=== PATIENT | female | born 1945 | race Caucasian/White ===

== ENCOUNTER 2019-01-07 09:35 | Emergency (ER) | payer MEDICARE, OTHER ==
--- NOTE | 2019-01-07 10:50 | RAD ---
RIGHT FOREARM TWO VIEWS: HISTORY: Fall. Pain. COMPARISON: None. FINDINGS: Chronic enthesopathic changes of the common flexor tendon, at the medial humeral epicondyle. The rad ius and ulna appear to be intact. No displaced fracture. IMPRESSION: Intact forearm. POS: [facility]
--- NOTE | 2019-01-07 10:53 | RAD ---
RIGHT HAND THREE VIEWS: HISTORY: Fall with hand injury and pain. COMPARISON: None. FINDINGS: Three views of the right hand show no evidence of acute fracture or dislocation. There is joint spac e narrowing and osteophyte formation of the interphalangeal joints of the fingers, as well as the fir st CMC joint, consistent with osteoarthritis. There are erosive osteoarthritic changes involving the DIP joint of the small finger. IMPRESSION: Degenerative changes of the right hand without acute osseous abnormality. POS: [facility]
== END 2019-01-07 10:50 | disposition home or self-care (01) ==
LOC: MADERS 09:35
DX: S60.222A Contusion of left hand, initial encounter (principal); S60.221A Contusion of right hand, initial encounter; I10 Essential (primary) hypertension; F17.210 Nicotine dependence, cigarettes, uncomplicated; W19.XXXA Unspecified fall, initial encounter

== ENCOUNTER 2023-10-01 11:44 | Emergency (ER) | payer MEDICARE, BC ==
[2023-10-01 12:44] LABS: #Basophils 0.1 thou/uL (0.0-0.2); #Lymphocytes 2.4 thou/uL (1.20-3.40); #Monocytes 0.5 thou/uL (0.11-0.59); #Neutrophils 3.4 thou/uL (1.40-6.50); %Basophils 1.1 % (0.0-1.0); %Eosinophils 0.4 % (0.0-10.0); %Monocytes 8.1 % (0.0-10.0); %Neutrophils 53.4 % (42.0-75.0); Hematocrit 45.2 % (36.0-47.0); Hemoglobin 14.5 g/dL (12.0-16.0); Mean Corpuscular HGB CONC 32.1 g/dL (32.0-36.0); Mean Corpuscular Hemoglobin 31.5 pg (27.0-31.0); Mean Platelet Volume 8.8 fL (7.4-10.4); Platelet Count 233 10x3/uL (130-400); RBC Distribution Width 12.2 % (11.5-14.5); Red Blood Cell (RBC) Count 4.61 mill/uL (4.20-5.40); White Blood Cell (WBC) Count 6.4 10x3/uL (4.8-10.8)
[2023-10-01 13:03] LABS: ALT (SGPT) 16 U/L (8-55); AST (SGOT) 10 U/L (5-34); Alkaline Phosphatase 49 U/L (40-110); Anion Gap 13 mmol/L (10-20); BUN (Urea Nitrogen) 12 mg/dL (9.8-20.1); Bilirubin, Total 0.4 mg/dL (0.2-1.2); Calc. Creatinine Clearance 0 mL/min (70-130); Calcium 8.7 mg/dL (7.8-10.44); Carbon Dioxide 28 mmol/L (23-31); Chloride 100 mmol/L (98-107); Estimated GFR 90; Globulin 2.5 g/dL (2.4-3.5); Glucose 94 mg/dL (83-110); Magnesium 2.1 mg/dL (1.6-2.6); Potassium 3.4 mmol/L (3.5-5.1); Protein, Total 6.5 g/dL (5.8-8.1); Sodium 138 mmol/L (136-145)
[2023-10-01] MEDS ORDERED: Gabapentin 100 MG CAP ONE (13:03)
[2023-10-01] MEDS ORDERED: Potassium Chloride 20 MEQ TAB ONE (13:56)
== END 2023-10-01 14:34 | disposition home or self-care (01) ==
LOC: MADERS 11:44
DX: M79.604 Pain in right leg (principal); I10 Essential (primary) hypertension; F17.210 Nicotine dependence, cigarettes, uncomplicated
CPT/HCPCS: 36415; 80053; 83735; 85025; 85379